=== PATIENT | male | born 1965 | race Two or more races ===

== ENCOUNTER 2018-08-10 10:51 | Outpatient (CLI) | payer OTHER | END 2018-08-10 10:57 | disposition home or self-care (01) | LOC: RAD 10:51 | DX: M25.562 Pain in left knee (principal); M54.5 Low back pain ==

== ENCOUNTER → 2018-10-30 | Outpatient (CLI) | payer OTHER | END | disposition home or self-care (01) | LOC: RAD 12:58 | DX: M25.551 Pain in right hip (principal); M25.552 Pain in left hip ==

== ENCOUNTER 2019-01-10 13:08 | Outpatient (CLI) | payer OTHER | END 2019-01-10 13:14 | disposition home or self-care (01) | LOC: RAD 501 13:08 | DX: M16.11 Unilateral primary osteoarthritis, right hip (principal) ==

== ENCOUNTER 2019-01-22 07:49 | Outpatient (CLI) | payer OTHER ==
[2019-01-22] MEDS ORDERED: VERAPAMIL ER180 MG PO (10:47)
[2019-01-22] MEDS ORDERED: PROZAC20 MG PO (10:49)
[2019-01-22] MEDS ORDERED: ATIVAN0.5 M1 PO (10:49)
[2019-01-22] MEDS ORDERED: fosinopril (10:49)
== END 2019-01-22 08:24 | disposition home or self-care (01) ==
LOC: LAB 07:49
DX: D64.89 Other specified anemias (principal); E88.89 Other specified metabolic disorders; D68.8 Other specified coagulation defects; N39.0 Urinary tract infection, site not specified; Z22.322 Carrier or suspected carrier of Methicillin resistant Staphylococcus aureus; Z76.89 Persons encountering health services in other specified circumstances; I49.8 Other specified cardiac arrhythmias

== ENCOUNTER 2019-01-29 09:30 | Inpatient (IN) | payer OTHER ==
[~2019-01-29] VITALS: Ht 177.8 cm; Wt 80.7 kg
[~2019-01-29 09:30] MED LIST: ATIVAN0.5 M1 PO; PROZAC20 MG PO; VERAPAMIL ER180 MG PO; fosinopril
[2019-02-06] MEDS ORDERED: LISINOPRIL10 MG PO (07:59)
[2019-02-06] MEDS ORDERED: FOSINOPRIL-HCT1 EAC1 PO (08:01)
== END 2019-02-08 13:25 | disposition home or self-care (01) | DRG 470 ==
LOC: SURG 09:30 → O/R 02-06 06:00 → SURG 02-06 07:00
PROVIDERS: ADMIT Orthopaedic Surgery
PROC: 0SRB0JA Replacement of Left Hip Joint with Synthetic Substitute, Uncemented, Open Approach (ICD-10-PCS; principal; 2019-02-06 07:00)
DX: M16.12 Unilateral primary osteoarthritis, left hip (principal); I10 Essential (primary) hypertension

== ENCOUNTER 2019-12-13 14:57 | Outpatient (CLI) | payer OTHER ==
[~2019-12-13 14:57] MED LIST changes: +FOSINOPRIL-HCT1 EAC1 PO; +LISINOPRIL10 MG PO
== END 2019-12-13 15:03 | disposition home or self-care (01) ==
LOC: RAD 14:57
DX: M25.561 Pain in right knee (principal)

== ENCOUNTER 2021-10-12 12:20 | Outpatient (CLI) | payer OTHER | END 2021-10-12 13:40 | disposition home or self-care (01) | LOC: LAB 12:20 | PROVIDERS: ATTEND Orthopaedic Surgery | DX: D64.9 Anemia, unspecified (principal); E88.9 Metabolic disorder, unspecified; D68.8 Other specified coagulation defects; N39.0 Urinary tract infection, site not specified; B95.62 Methicillin resistant Staphylococcus aureus infection as the cause of diseases classified elsewhere; E11.65 Type 2 diabetes mellitus with hyperglycemia; I10 Essential (primary) hypertension; Z76.89 Persons encountering health services in other specified circumstances ==

== ENCOUNTER 2021-10-21 10:00 | Inpatient (IN) | payer OTHER ==
[~2021-10-21] VITALS: Ht 177.8 cm; Wt 78.9 kg
[2021-10-21] MEDS ORDERED: XANAX1 MG PO (12:24)
[2021-10-26] MEDS ORDERED: FAMOTIDINE40 MG (10:57)
[2021-10-26] MEDS ORDERED: GLYCOPYRROLATE2 MG (10:58)
[2021-10-26] MEDS ORDERED: ATORVASTATIN CA20 MG (10:58)
[2021-10-26] MEDS ORDERED: PANTOPRAZOLE SO40 MG (10:58)
[2021-10-26] MEDS ORDERED: COLCHICINE0.6 MG (10:58)
== END 2021-10-28 10:59 | disposition home or self-care (01) | DRG 470 ==
LOC: O/R 10-26 09:21 → SURH 10-26 09:45 → SURG 10-26 17:16
PROVIDERS: ADMIT Orthopaedic Surgery; ATTEND Orthopaedic Surgery
PROC: 3E0F7SF Introduction of Other Gas into Respiratory Tract, Via Natural or Artificial Opening (ICD-10-PCS; 2021-10-26)
PROC: 0SR906Z Replacement of Right Hip Joint with Oxidized Zirconium on Polyethylene Synthetic Substitute, Open Approach (ICD-10-PCS; principal; 2021-10-26 09:45)
DX: M16.11 Unilateral primary osteoarthritis, right hip (principal)

== ENCOUNTER 2021-11-11 11:29 | Outpatient (CLI) | payer OTHER ==
[~2021-11-11 11:29] MED LIST changes: +ATORVASTATIN CA20 MG; +COLCHICINE0.6 MG; +FAMOTIDINE40 MG; +GLYCOPYRROLATE2 MG; +PANTOPRAZOLE SO40 MG; +XANAX1 MG PO
== END 2021-11-11 11:39 | disposition home or self-care (01) ==
LOC: LAB 11:29
PROVIDERS: ATTEND Orthopaedic Surgery
DX: D64.9 Anemia, unspecified (principal); M06.4 Inflammatory polyarthropathy

== ENCOUNTER → 2021-11-16 10:35 | Outpatient (CLI) | payer OTHER | END | disposition home or self-care (01) | LOC: LAB 10:35 | PROVIDERS: ATTEND Orthopaedic Surgery | DX: D64.9 Anemia, unspecified (principal); M06.4 Inflammatory polyarthropathy ==